=== PATIENT | female | born 1960 | race Caucasian/White ===

== ENCOUNTER 2021-01-31 16:03 | Emergency (ER) | payer OTHER ==
[~2021-01-31] VITALS: Ht 170.2 cm; Wt 81.6 kg
[2021-01-31] MEDS ORDERED: ONDANSETRON HCL INJ 2MG/ML 2ML 2 MG/ML VIAL IV STA (16:22)
[2021-01-31] MEDS ORDERED: MORPHINE SULFATE INJ 4 MG/ML INJ 1ML IV STA (16:22)
[2021-01-31] MEDS ORDERED: IBUPROFEN600 MG PO (17:14)
[2021-01-31] MEDS ORDERED: ULTRACET TABLE1 EACH PO (17:14)
== END 2021-01-31 17:45 | disposition home or self-care (01) ==
LOC: ER 16:27
DX: S42.292A Other displaced fracture of upper end of left humerus, initial encounter for closed fracture (principal); M79.672 Pain in left foot; W10.8XXA Fall (on) (from) other stairs and steps, initial encounter; Y93.01 Activity, walking, marching and hiking; Y92.89 Other specified places as the place of occurrence of the external cause; I10 Essential (primary) hypertension; F17.210 Nicotine dependence, cigarettes, uncomplicated
CPT/HCPCS: 73030; 73610; 73630; 99284; J2270; J2405

== ENCOUNTER 2023-05-02 19:54 | Emergency (ER) | payer OTHER ==
[~2023-05-02] VITALS: Ht 170.2 cm; Wt 81.6 kg
[~2023-05-02 19:54] MED LIST: IBUPROFEN600 MG PO; ULTRACET TABLE1 EACH PO
[2023-05-02] MEDS ORDERED: SODIUM CHLORIDE 0.9% 1000ML 1,000 ML IV ONE (20:30)
[2023-05-02] MEDS ORDERED: SODIUM CHLORIDE FLUSH 10 ML SYR IV PRN (20:30)
[2023-05-02 20:39] LABS: BASOPHILS # (AUTO) 0.2 (0.0-0.1); BASOPHILS % 0.5 % (0.0-1.0); EOSINOPHILS # (AUTO) 0.3 (0.0-0.4); EOSINOPHILS % 0.8 % (0.0-6.0); HEMATOCRIT 44.2 % (34.2-44.1); HEMOGLOBIN 14.6 g/dL (12.0-16.0); LYMPHOCYTES # (AUTO) 26.1 (1.0-3.2); LYMPHOCYTES % 79.7 % (18.0-39.1); MEAN CORPUSCULAR HEMOGLOBIN 30.4 pg (28-32); MEAN CORPUSCULAR VOLUME 91.9 fL (81-99); MONOCYTES # (AUTO) 3.2 (0.2-0.8); MONOCYTES % 9.8 % (4.4-11.3); NEUTROPHILS % 9.1 % (38.7-80.0); PLATELET COUNT 370 x10e3/uL (140-360); RED BLOOD COUNT 4.81 x10e6/uL (3.6-5.1); RED CELL DISTRIBUTION WIDTH 12.8 % (11.7-14.4); WHITE BLOOD COUNT 32.73 x10e3/uL (4.8-10.8)
[2023-05-02 20:45] LABS: CLARITY,URINE CLEAR (CLEAR); COLOR,URINE YELLOW (YELLOW); LEUKOCYTE ESTERASE ,URINE NEGATIVE (NEGATIVE); NITRITE,URINE NEGATIVE (NEGATIVE); PH,URINE 5.5 (5 - 7); PROTEIN,URINE DIPSTICK NEGATIVE (NEGATIVE)
[2023-05-02] MEDS ORDERED: ALBUTEROL/IPRATROPIUM 3 ML NEB NEB ONE (20:45)
[2023-05-02 20:46] LABS: BILIRUBIN,URINE NEGATIVE (NEGATIVE); GLUCOSE, URINE NEGATIVE (NEGATIVE); INR 0.94; KETONES,URINE NEGATIVE (NEGATIVE); PROTHROMBIN TIME 12.8 seconds (11.9-14.5); URINE UROBILINOGEN 0.2 mg/dL (0.2 - 1)
[2023-05-02 20:56] LABS: ALBUMIN/GLOBULIN RATIO 1.3 (0.8-2.0); ANION GAP 15.3 mmol/L (8-16); BACTERIA,URINE RARE /HPF; BILIRUBIN,TOTAL 0.4 mg/dL (0.2-1.2); CALCIUM 8.8 mg/dL (8.4-10.2); CREATININE, SERUM 0.91 mg/dL (0.57-1.11); EPITHELIAL CELLS,URINE FEW /LPF; POTASSIUM 4.3 mmol/L (3.5-5.1)
[2023-05-02 21:00] VITALS: PULSE 74; RESP 22; O2SAT 96
[2023-05-02 21:02] LABS: TROPONIN I 0.023 ng/mL (0-0.300)
[2023-05-02 21:04] LABS: ACETAMINOPHEN < 3.0 ug/mL (10-30); ETHANOL < 10.0 mg/dL (0.0-10.0); SALICYLATE < 5.0 mg/dL (0-30)
[2023-05-02 21:06] LABS: AMPHETAMINES SCREEN,URINE NEGATIVE (NEGATIVE); BENZODIAZEPINES SCREEN,URINE NEGATIVE (NEGATIVE); CANNABINOIDS SCREEN,URINE NEGATIVE (NEGATIVE); METHADONE SCREEN, URINE NEGATIVE (NEGATIVE); OPIATES SCREEN,URINE NEGATIVE (NEGATIVE); PHENCYCLIDINE SCREEN,URINE NEGATIVE (NEGATIVE)
[2023-05-02] MEDS ORDERED: ASPIRIN 81 MG CHEW TAB PO ONE (21:15)
[2023-05-02] MEDS ORDERED: LORAZEPAM INJ 2 MG/ML VIAL IV ONE (21:15)
[2023-05-03] VITALS: BP 128/88; PULSE 79; RESP 22; O2SAT 96
[2023-05-03 04:35] LABS: BASOPHILS % (MANUAL) 1 % (0-1.5); BLAST CELLS % MANUAL 4; LYMPHOCYTES % (MANUAL) 73 % (19-48); MONOCYTES % (MANUAL) 8 % (3.4-9.0); NEUTROPHILS % (MANUAL) 14 % (40-74)
[2023-05-03 04:36] LABS: PLATELET ESTIMATE ADEQUATE; PLATELET MORPHOLOGY COMMENT NORMAL
[2023-05-03 04:37] LABS: RBC MORPHOLOGY COMMENT NORMAL
[2023-05-03] MEDS ORDERED: IOPAMIDOL 370 MG/ML 100 ML INFUS..BTL INJ ONE (05:58)
== END 2023-05-02 23:54 | disposition short-term general hospital (02) ==
LOC: ER 20:05
DX: R41.3 Other amnesia (principal); I63.9 Cerebral infarction, unspecified; R06.00 Dyspnea, unspecified; R51.9 Headache, unspecified; I10 Essential (primary) hypertension; Z11.52 Encounter for screening for COVID-19; F17.210 Nicotine dependence, cigarettes, uncomplicated
CPT/HCPCS: 36415; 70450; 70496; 70498; 71045; 80053; 80307; 80320; 80329 ×2; 81001; 83880; 84484; 85025; 85610; 85730; 87040; 87071; 87205; 87400; 93005; 94640; 94760; 94799; 99284; J2060; J7030; Q9967; U0002